=== PATIENT | female | born 1980 | race African-American/Black ===

== ENCOUNTER 2016-09-19 08:38 | Emergency (ER) | payer SELFPAY ==
[~2016-09-19] VITALS: Ht 157.5 cm; Wt 79.4 kg
[~2016-09-19 08:38] MED LIST: CLON1TAB PO; IBUP800T PO; LAMO200T3 PO; OXCA600T3 PO; PRED50TA PO; TOPI200T25 PO; VENL150C PO
[2016-09-19 08:46] VITALS: BP 135/72
[2016-09-19] MEDS ORDERED: HYDR-971 PO ×3 (08:57→09:24)
--- NOTE | 2016-09-19 09:00 | PHYS DOC ---
Past History Past Medical History: Anxiety, Asthma, Bipolar, Depression Past Surgical History: Tubal ligation, Other Alcohol Use: None Drug Use: None Adult General Chief Complaint Chief Complaint: EARACHE/EAR PAIN HPI HPI Patient is a 35 yo female presenting to ED for evaluation of L ear, jaw, facial pain that has been going on for appx 2-3 days. She says she is still getting over bronchitis from last week and has nasal congestion and runny nose. She says she has constant dull ache but feels a sharp shooting pain down the L side of her face when she opens her mouth or is chewing. She says that she feels numbness/tingling on the L roof of her mouth. Ibuprofen helps but wears off and symptoms come back. No fevers, chills, soa, unilateral weakness, vision changes, difficulty speaking. She is in nad with normal VS. Review of Systems Review of Systems Constitutional: Denies fever or chills [] Eyes: Denies change in visual acuity, redness, or eye pain [] HENT: + nasal congestion and sore throat [] Respiratory: + cough. No shortness of breath [] Cardiovascular: No CP GI: Denies abdominal pain, nausea, vomiting, bloody stools or diarrhea [] Integument: Denies rash or skin lesions [] Neurologic: Denies headache, focal weakness. + sensory changes [] Allergies Allergies Allergies Coded Allergies Type Severity Reaction Last Updated Verified No Known Drug Allergies 01/24/16 No Physical Exam Physical Exam Constitutional: Well developed, well nourished, no acute distress, non-toxic appearance. [] HENT: Normocephalic, atraumatic, L ear with fluid behind TM, no erythema or signs of OM. No mastoid tenderness and no ear canal erythema, oropharynx moist , no oral exudates, pharynx slightly erythemetous, nose with boggy turbinates. L TMJ pain to palpation. Eyes: PERRLA, EOMI, conjunctiva normal, no discharge. [] Neck: Normal range of motion, no tenderness, supple, no stridor. [] Cardiovascular:Heart rate regular rhythm, no murmur [] Lungs & Thorax: Bilateral breath sounds clear to auscultation [] Neurologic: Alert and oriented X 3, normal motor function, normal sensory function, no focal deficits noted. [] EKG EKG [] Radiology/Procedures Radiology/Procedures [] Course & Med Decision Making Course & Med Decision Making Patient with URI symptoms and now an ear effusion and some TMJ symptoms. Likely there is some CN 7 inflammation as well. No focal neuro deficits on exam. Suspect inflammatory process rather than bacterial infection. Will give decadron here and treat with nsaids, decongestants, norco for breakthrough pain. Patient aware and agreeable with plan. Dragon Disclaimer Dragon Disclaimer This chart was dictated in whole or in part using Voice Recognition software in a busy, high-work load, and often noisy Emergency Department environment. It may contain unintended and wholly unrecognized errors or omissions. Departure Departure: Impression: Primary Impression: TMJ (temporomandibular joint syndrome) Additional Impression: Left ear pain Disposition: HOME, SELF-CARE Condition: GOOD Referrals: PCPDAVID (PCP) Patient Instructions: Temporomandibular Problems Additional Instructions: TAKE 400MG OF IBUPROFEN EVERY 6 HOURS FOR PAIN AND THE NORCO FOR BREAKTHROUGH PAIN. TRY AND DO SOME RESISTANCE EXERCISES WITH YOUR JAW TO HELP YOUR PAIN. USE OTC NASONEX AND BENADRYL TO DECREASE YOUR CONGESTION. FOLLOW WITH A PRIMARY CARE PROVIDER NEXT WEEK TO ENSURE IMPROVEMENT AND COME BACK TO THE ED SOONER WITH ANY NEW OR WORSENING SYMPTOMS. THANK YOU! Problem Qualifiers SABINA MCKEON DO Sep 19, 2016 09:00
[2016-09-19] MEDS: DEXAMETHASONE 4 MG TABLET PO ONE (09:09)
== END 2016-09-19 09:15 | disposition home or self-care (01) ==
LOC: ER 08:38
DX: H92.02 Otalgia, left ear (principal); M26.622 Arthralgia of left temporomandibular joint; R09.81 Nasal congestion; J45.909 Unspecified asthma, uncomplicated
CPT/HCPCS: 99283; J8540